=== PATIENT | female | born 2000 | race Caucasian/White ===

== ENCOUNTER 2022-10-06 13:02 | Emergency (ER) | payer OTHER, SELFPAY ==
--- NOTE | 2022-10-06 13:04 | ED_ITS ---
HPI - Extremity Injury (Upper) General Chief Complaint: Wound/Laceration <Fay Perkins NP - Last Filed: 10/06/22 13:07> Stated Complaint: sliced L index finger <Fay Perkins NP - Last Filed: 10/06/22 13:07> Time Seen by Provider: 10/06/22 13:20 <Fay Perkins NP - Last Filed: 10/06/22 13:07> Source: patient <JOCE Hannah - Last Filed: 10/06/22 14:46> Mode of arrival: ambulatory <JOCE Hannah Last Filed: 10/06/22 14:46> Limitations: no limitations <JOCE Hannah Last Filed: 10/06/22 14:46> History of Present Illness HPI narrative: Patient is a 22yo female presenting for evaluation of a finger laceration sustained an hour ago. Patinet stated that she was cutting myriam stems with a knife which slipped and cut her finger. Patient denied being on any blood thinners. She denies associated symptoms including fever, weakness, fatigue, dizziness, headache, swelling, erythema, or ecchymosis, chest pain, abdominal pain, nausea, vomiting, diarrhea, urinary retention or incontinence. <JOCE Hannah - Last Filed: 10/06/22 14:46> MD complaint: injury to: finger (left index finger) <JOCE Hannah - Last Filed: 10/06/22 14:46> Onset (ago): hour(s) (1) <JOCE Hannah - Last Filed: 10/06/22 14:46> Other Extremity Injury: left: fingers (index) <JOCE Hannah Last Filed: 10/06/22 14:46> Other injuries: none <JOCE Hannah Last Filed: 10/06/22 14:46> Handedness: right <JOCE Hannah Last Filed: 10/06/22 14:46> Place: home <JOCE Hannah Last Filed: 10/06/22 14:46> Context: laceration <JOCE Hannah Last Filed: 10/06/22 14:46> Associated symptoms: denies other symptoms <JOCE Hannah - Last Filed: 10/06/22 14:46> Treatments prior to arrival: bandage <JOCE Hannah - Last Filed: 10/06/22 14:46> Related Data Home Medications: Previous Rx's Medication Instructions Recorded pyridoxine (vitamin B6) 25 mg 25 mg PO TID PRN nausea and 03/31/20 tablet (Vitamin B-6) vomiting #90 tabs <Fay Perkins NP - Last Filed: 10/06/22 13:07> Allergies/Adverse Reactions: Allergies Allergy/AdvReac Type Severity Reaction Status Date / Time No Known Allergies Allergy Verified 10/06/22 13:07 [No Known Allergies*] <Fay Perkins NP - Last Filed: 10/06/22 13:07> Review of Systems Review of Systems: Yes all other systems are reviewed and are negative <JOCE Hannah - Last Filed: 10/06/22 14:46> [facility] Social History Social History: Social History Advance Directives: No <Fay Perkins NP - Last Filed: 10/06/22 13:07> Physical Exam Vital Signs: Vital Signs: Last Vital Signs Temp 97.6 F 10/06/22 13:07 Pulse 93 10/06/22 13:07 Resp 10/06/22 13:07 BP 148/91 H 10/06/22 13:07 Pulse Ox 100 10/06/22 13:07 O2 Del Method Room Air 10/06/22 13:07 BMI result Body Mass Index 32.3 <Fay Perkins NP - Last Filed: 10/06/22 13:07> Vital Signs: Last Vital Signs Temp 97.6 F 10/06/22 13:07 Pulse 93 10/06/22 13:07 Resp 10/06/22 13:07 BP 148/91 H 10/06/22 13:07 Pulse Ox 100 10/06/22 13:07 O2 Del Method Room Air 10/06/22 13:07 BMI result Body Mass Index 32.3 <JOCE Hannah - Last Filed: 10/06/22 14:46> Appearance: Alert. Oriented X3. No acute distress. Head: normocephalic, atraumatic. Neck: Normal inspection. CVS: Normal heart rate and rhythm. Respiratory: No respiratory distress. Skin: Skin warm and dry. Normal skin color. Normal skin turgor. No rashes. Extremities: No lower extremity edema. No joint swelling. 3 mm flap of skin present on the patient's left index finger with laceration extending 1mm into the nail with minor bleeding. Neuro/psych: Oriented X 3. No motor deficit. No sensory deficit. Normal speech and cognition. <JOCE Hannah - Last Filed: 10/06/22 14:46> Course Course Course Narrative: This is a rapid medical exam. Deferred additional HPI, ROS, PE to primary problem. 22 yo female right hand dominant here with laceration to left index finger which occurred from cutting hunt with a knife. Tetanus UTD. Laceration over distal [id number] need several sutures. Wrapped in triage. VSS <Fay Perkins NP - Last Filed: 10/06/22 13:07> Medications Administered Discontinued Medications Generic Name Dose Route Start Last Admin Trade Name Freq PRN Reason Stop Dose Admin Lidocaine HCl 30 ml 10/06/22 13:20 10/06/22 13:41 Lidocaine Hcl 1 % 20 Ml Vial INFILTRATI 10/06/22 13:21 30 ml ONCE ONE Administration <Fay Perkins NP - Last Filed: 10/06/22 13:07> Medications Administered Discontinued Medications Generic Name Dose Route Start Last Admin Trade Name Freq PRN Reason Stop Dose Admin Lidocaine HCl 30 ml 10/06/22 13:20 10/06/22 13:41 Lidocaine Hcl 1 % 20 Ml Vial INFILTRATI 10/06/22 13:21 30 ml ONCE ONE Administration <JOCE Hannah - Last Filed: 10/06/22 14:46> Medical Decision Making Medical Decision Making MDM Narrative: Patient is a 22yo female presenting for evaluation of a laceration to the left index finger sustained from a knife while she was cutting myriam stems. Local anesthesia was given and two sutures placed. Patient was counseled to keep the area clean and avoid soaking it. Patient was informed to follow up with her primary care for suture removal in 7-10 days and return to the ER if her symptoms worsen or she develops any increased swelling, erythema, warmth, or discharge or if she begins to experience fever, chest pain, SOB, weakness, fatigue, syncope, or near syncope. <JOCE Hannah Last Filed: 10/06/22 14:46> Differential Diagnosis Differential Diagnoses: The differential diagnosis associated with the presentation includes <JOCE Hannah Last Filed: 10/06/22 14:46> superficial laceration, deep laceration, infected laceration <JOCE Hannah - Last Filed: 10/06/22 14:46> Tests considered The following testing was considered but not selected: xray considered but not required given minor injury <JOCE Hannah Last Filed: 10/06/22 14:46> Prescription Management I considered prescription management with: Antibiotic <JOCE Hannah Last Filed: 10/06/22 14:46> Procedures Laceration Laceration 1: Side (If applicable): left (index finger) <JOCE Hannah Last Filed: 10/06/22 14:46> Size (cm): 0.3 <JOCE Hannah - Last Filed: 10/06/22 14:46> Description: flap <JOCE Hannah Last Filed: 10/06/22 14:46> Depth: simple, single layer <JOCE Hannah Last Filed: 10/06/22 14:46> Local Anesthetic: lidocaine 1% <JOCE Hannah Last Filed: 10/06/22 14:46> Amount of anesthesia used (mL): 0.1 <JOCE Hannah Last Filed: 10/06/22 14:46> Pre-repair: irrigated extensively <JOCE Hannah Last Filed: 10/06/22 14:46> Skin layer closed with: vicryl <JOCE Hannah Last Filed: 10/06/22 14:46> Size (cm): 5-0 <JOCE Hannah Last Filed: 10/06/22 14:46> Number of sutures: 2 <JOCE Hannah Last Filed: 10/06/22 14:46> Technique: simple, interrupted <JOCE Hannah Filed: 10/06/22 14:46> Critical Care Time Critical Care Time Critical Care Time: No <JOCE Hannah - Last Filed: 10/06/22 14:46> Discharge Plan Discharge Clinical Impression: Finger laceration <Fay Perkins NP - Last Filed: 10/06/22 13:07> Patient Disposition: Home, Self-Care <Fay Perkins NP - Last Filed: 10/06/22 13:07> Instructions: Finger Laceration (ED) <Fay Perkins NP - Last Filed: 10/06/22 13:07> Additional Instructions: You will need your stitches out in 7-10 days. See you doctor for this or come back to the ER and we will remove them. Do not get wet for 24 hours, after that you can briefly wash with soap and water then pat dry. Keep wound clean and covered. Allow open to air when home. Do not submerge in water, no swimming. If you develop signs of infection including increased pain, swelling, redness or drainage of pus come back to the ER for further evaluation. <Fay Perkins NP - Last Filed: 10/06/22 13:07> Prescriptions: No Action pyridoxine (vitamin B6) [Vitamin B-6] 25 mg tablet 25 mg PO TID PRN (Reason: nausea and vomiting) Qty: 90 3RF Rx Instructions: may take every 6-8 hours for nausea <Fay Perkins NP - Last Filed: 10/06/22 13:07> Interventions: ED Discharge Assessment Last Done: 10/06/22 14:34 <Fay Perkins NP - Last Filed: 10/06/22 13:07> Discharge Date/Time: 10/06/22 14:35 <Fay Perkins NP - Last Filed: 10/06/22 13:07>
[2022-10-06 13:07] VITALS: BP 148/91; PULSE 93; RESP 19; TEMP 36.4; O2SAT 100; BMI 32.3
[2022-10-06] MEDS: Lidocaine HCl 1 % 20 ML VIAL 30 ML INFILTRATI (13:41)
== END 2022-10-06 14:35 | disposition home or self-care (01) ==
PROVIDERS: Emergency Provider Emergency Medicine; PCP Specialist
DX: S61.211A Laceration without foreign body of left index finger without damage to nail, initial encounter (principal); W26.9XXA Contact with unspecified sharp object(s), initial encounter; Y93.9 Activity, unspecified; Y92.9 Unspecified place or not applicable; Y99.9 Unspecified external cause status
CPT/HCPCS: 12041; 99282; 99284

== ENCOUNTER 2022-10-16 17:47 | Emergency (ER) | payer OTHER, SELFPAY ==
[2022-10-16 18:30] VITALS: BP 137/83; PULSE 99; RESP 18; TEMP 36.3; O2SAT 100; BMI 32.3
--- NOTE | 2022-10-16 18:34 | ED.GENADULT ---
HPI - General Adult General Chief complaint: General Medical Stated complaint: suture removal Source: patient, RN notes reviewed and old records reviewed Mode of arrival: ambulatory Limitations: no limitations History of Present Illness HPI narrative: 22-year-old female presents for evaluation of a suture removal. Patient had 2 sutures placed her left index finger 10 days ago after cutting it on a knife by accident. Denies any pain to the area. No fevers, no redness to the wound and no drainage from the wound Related Data Previous Rx's Medication Instructions Recorded pyridoxine (vitamin B6) 25 mg 25 mg PO TID PRN nausea and 03/31/20 tablet (Vitamin B-6) vomiting #90 tabs Allergies Allergy/AdvReac Type Severity Reaction Status Date / Time No Known Allergies Allergy Verified 10/16/22 18:30 [No Known Allergies*] Physical Exam ED Vital Signs: Vital Signs - 24 hr 10/16/22 18:30 Temperature 97.3 F Pulse Rate 99 Respiratory Rate 18 Blood Pressure 137/83 Pulse Oximetry 100 Oxygen Delivery Method Room Air BMI result Body Mass Index 32.3 Const General: healthy appearing, comfortable, no acute distress, alert and awake Nutritional Appearance: well nourished Orientation/consciousness: patient oriented x3 Skin Other: Small 2 cm laceration that is well healed without dehiscence to the left index finger. Two sutures in place. No surrounding erythema or purulence Neuro General: patient oriented x3 Cranial nerves: Yes Bilaterally intact EOM present Cognition (Neuro): normal cognition Extrem Other: Moving all extremities well without any obvious deformities Medical Decision Making Medical Decision Making MDM Narrative: Was easily able to remove 2 sutures with scissors. There was no dehiscence. The wound is well healed. No evidence of infection. Differential Diagnosis Suture removal Wound check Laceration Puncture wound Discharge Plan Discharge Clinical Impression: Visit for suture removal Patient Disposition: Home, Self-Care Prescriptions: No Action pyridoxine (vitamin B6) [Vitamin B-6] 25 mg tablet 25 mg PO TID PRN (Reason: nausea and vomiting) Qty: 90 3RF Rx Instructions: may take every 6-8 hours for nausea
== END 2022-10-16 18:40 | disposition home or self-care (01) ==
PROVIDERS: Emergency Provider Internal Medicine; PCP Specialist
DX: Z48.02 Encounter for removal of sutures (principal)
CPT/HCPCS: 99282